=== PATIENT | female | born 1965 | race Caucasian/White ===

== ENCOUNTER 2022-11-25 23:12 | Emergency (ER) | payer SELFPAY ==
[~2022-11-25] VITALS: Ht 160 cm; Wt 50.8 kg
--- NOTE | 2022-11-25 23:28 | NUR ---
[id number] "FOUND UNRESPONSIVE BY STAFF" PT ADMITS TO FENTANYL&ETOH, 2MG NASAL& 2MG IV OF NARCAN GIVEN AOC [employer]ICER. PT AAO X 4, BREATHING UNLABORED. PT ATTACHED TO MONITOR AND PULSE OX. AWAITING MD PAL
--- NOTE | 2022-11-25 23:30 | NUR ---
PROVIDED PT WITH URINE; NOT ABLE TO PROVIDED URINE AT THIS TIME.
--- NOTE | 2022-11-25 23:36 | NUR ---
blood collected, sent to lab
[2022-11-25 23:46] LABS: BASOPHILS # (AUTO) 0.1 K/uL (0.0-0.2); BASOPHILS % (AUTO) 0.9 % (0.0-2.0); HEMATOCRIT 48 % (33-45); HEMOGLOBIN 16.5 g/dL (11.5-14.8); LYMPHOCYTES # (AUTO) 3.2 K/uL (0.8-4.8); LYMPHOCYTES % (AUTO) 32.2 % (20.0-44.0); MEAN CORPUSCULAR HGB CONC 34 g/dl (31.0-36.0); MEAN CORPUSCULAR VOLUME 90 fL (82-100); MONOCYTES # (AUTO) 0.8 K/uL (0.1-1.30); MONOCYTES % (AUTO) 8.3 % (2.0-12.0); NEUTROPHILS # (AUTO) 5.7 K/uL (1.8-8.9); NEUTROPHILS % (AUTO) 57.6 % (43.0-81.0); PLATELET COUNT (AUTO) 433 K/uL (150-450); RED BLOOD CELL COUNT(AUTO) 5.38 MIL/uL (4.0-5.2); WHITE BLOOD COUNT (AUTO) 9.9 K/uL (4.3-11.0)
[2022-11-25] MEDS ORDERED: ONDANSETRON HCL/PF 4 MG/2 ML VIAL ONE (23:51)
[2022-11-25 23:59] LABS: CALCIUM, SERUM 9.7 mg/dL (8.5-10.1); CARBON DIOXIDE 27 mmol/L (21-32); CHLORIDE 93 mmol/L (98-107); CREATININE 0.9 mg/dL (0.6-1.3); GLUCOSE 217 mg/dL (74-106); POTASSIUM 2.9 mmol/L (3.5-5.1); SODIUM SERUM 136 mmol/L (136-145); UREA NITROGEN, BLOOD 15 mg/dL (7-18)
[2022-11-26] MEDS ORDERED: ONDANSETRON HCL/PF 4 MG/2 ML VIAL IV ONE
[2022-11-26] MEDS ORDERED: IV NS 0.9% 1,000 ML BAG IV ONE
[2022-11-26 00:11] LABS: ALANINE AMINOTRANSFERASE 29 U/L (12-78); ALBUMIN 3.8 g/dL (3.4-5.0); ALCOHOL, BLOOD 64 mg/dL (0-10); ALKALINE PHOSPHATASE 143 U/L (46-116); ASPARTATE AMINOTRANSFERASE 55 U/L (15-37); BILIRUBIN,DIRECT 0.2 mg/dL (0.0-0.2); BILIRUBIN,TOTAL 0.9 mg/dL (0.2-1.0); TOTAL PROTEIN, SERUM 8.2 g/dL (6.4-8.2)
[2022-11-26] MEDS ORDERED: POTASSIUM CHLORIDE 20 MEQ TAB.PRT.SR PO ONE ×3 (00:30→00:32)
--- NOTE | 2022-11-26 00:42 | NUR ---
pt still unable to provide urine specimen at this time.
--- NOTE | 2022-11-26 01:05 | NUR ---
Esmer Brown (friend), asking for pt to call her ph. [phone]
--- NOTE | 2022-11-26 01:13 | NUR ---
PT STILL NOT ABLE TO PROVIDE URINE SAMPLE; DR HARRISON DO AWARE
--- NOTE | 2022-11-26 05:03 | NUR ---
IV removed. Catheter intact and site benign. Pressure and 4x4 applied to site. No bleeding noted.
--- NOTE | 2022-11-26 05:05 | NUR ---
specialty person Seymour [phone] left voicemail and provided with callback number
[2022-11-26 05:36] VITALS: BP 116/75; TEMP 98.7; O2SAT 96
--- NOTE | 2022-11-26 05:36 | NUR ---
Patient discharged to home in stable condition. Written and verbal after care instructions given. Patient verbalizes understanding of instruction. Pt ambulatory with a steady gait
== END 2022-11-26 05:37 | disposition home or self-care (01) ==
LOC: ER 23:20
DX: E87.6 Hypokalemia (principal); T40.411A Poisoning by fentanyl or fentanyl analogs, accidental (unintentional), initial encounter; Y92.89 Other specified places as the place of occurrence of the external cause
CPT/HCPCS: 99285; 96374; 96361; 93005; 85025; 80048; 80076; 36415; 82962; 80143; 80320; J2405; J7030; G0480